=== PATIENT | male | born 1965 | race Caucasian/White ===

== ENCOUNTER 2021-04-12 16:04 | Emergency (ER) | payer BC ==
[~2021-04-12] VITALS: Ht 185.4 cm; Wt 90.7 kg
== END 2021-04-12 19:09 | disposition home or self-care (01) ==
LOC: ED 16:04
DX: S61.012A Laceration without foreign body of left thumb without damage to nail, initial encounter (principal); Z23 Encounter for immunization; W45.8XXA Other foreign body or object entering through skin, initial encounter
CPT/HCPCS: 90471; 90715; 99282